=== PATIENT | female | born 1970 | race African-American/Black ===

== ENCOUNTER 2020-06-02 19:26 | Emergency (ER) | payer OTHER ==
[2020-06-02 21:15] LABS: ABSOLUTE NEUTROPHILS 7.9 thou/uL (1.4-8.2); BASOPHILS 0.7 % (0.0-2.0); EOSINOPHILS 3.2 % (0.0-3.0); HEMATOCRIT 38.1 % (37.0-47.0); HEMOGLOBIN 12.1 gm/dL (12.0-15.0); LYMPHOCYTES 18.8 % (24.0-44.0); MCH 22.3 pg (26.0-34.0); MCHC 31.8 g/dL (28.0-37.0); MCV 70.2 fL (80.0-100.0); MONOCYTES 8.6 % (1.0-8.0); PLATELET COUNT 243 thou/uL (150-400); POLYS 68.7 % (36.0-66.0); RBC 5.43 mil/uL (4.20-5.00); RDW 15.3 % (10.5-14.5); WBC 11.5 thou/uL (4.0-11.0)
[2020-06-02 21:20] LABS: CALCIUM 9.1 mg/dL (8.5-10.1); MAGNESIUM 2.2 mg/dL (1.8-2.4); POTASSIUM 3.4 mmol/L (3.5-5.1)
== END 2020-06-02 22:28 | disposition home or self-care (01) ==
LOC: ER 19:26
PROVIDERS: Emergency Medicine
DX: R19.7 Diarrhea, unspecified (principal); M79.672 Pain in left foot; R53.81 Other malaise; R20.2 Paresthesia of skin; R05 Cough; R06.02 Shortness of breath; M19.90 Unspecified osteoarthritis, unspecified site; Z88.8 Allergy status to other drugs, medicaments and biological substances; Z88.1 Allergy status to other antibiotic agents; Z88.2 Allergy status to sulfonamides

== ENCOUNTER 2021-02-03 23:30 | Emergency (ER) | payer OTHER ==
[~2021-02-03] VITALS: Ht 172.7 cm; Wt 114.3 kg
[2021-02-04 00:24] LABS: HEMATOCRIT 31.7 % (37.0-47.0); HEMOGLOBIN 10.2 gm/dL (12.0-15.0); MCH 22.3 pg (26.0-34.0); MCHC 32.1 g/dL (28.0-37.0); MCV 69.4 fL (80.0-100.0); RBC 4.57 mil/uL (4.20-5.00); RDW 14.8 % (10.5-14.5); WBC 10.5 thou/uL (4.0-11.0)
[2021-02-04 00:42] LABS: ALBUMIN 2.7 g/dL (3.4-5.0); CALCIUM 8.7 mg/dL (8.5-10.1); CREATININE 0.9 mg/dL (0.6-1.0); TOTAL BILIRUBIN 0.3 mg/dL (0.2-1.0); TOTAL PROTEIN 7.9 g/dL (6.4-8.2)
[2021-02-04 00:48] LABS: POTASSIUM 2.8 mmol/L (3.5-5.1)
[2021-02-04] MEDS ORDERED: GUAIFEN-CODEINE10 ML PO (01:15)
[2021-02-04] MEDS ORDERED: POTASSIUM20 PO (01:16)
[2021-02-04] MEDS ORDERED: LEVAQUIN 500 M500 MG PO ×2 (01:17→01:28)
[2021-02-04] MEDS ORDERED: GUAIFENESIN-CO473 ML PO (01:24)
[2021-02-04] MEDS ORDERED: POTASSIUM CHLO20 ME2 PO (01:24)
[2021-02-04 01:42] VITALS: BP 160/90
[2021-02-05] MEDS ORDERED: OXYBUTYNIN 5 MG5 M2 PO (21:01)
[2021-02-05] MEDS ORDERED: BUTALBIT-ACETA1 EACH PO (21:02)
[2021-02-05] MEDS ORDERED: NEURONTIN300 MG PO (21:04)
[2021-02-05] MEDS ORDERED: PROAIR HFA8.5 GM INH (21:05)
== END 2021-02-04 01:40 | disposition home or self-care (01) ==
LOC: ER 23:30
PROVIDERS: Emergency Medicine
DX: J18.9 Pneumonia, unspecified organism (principal); E87.6 Hypokalemia; Z88.2 Allergy status to sulfonamides; Z88.1 Allergy status to other antibiotic agents; Z88.8 Allergy status to other drugs, medicaments and biological substances

== ENCOUNTER 2021-02-05 18:17 | Inpatient (IN) | payer OTHER ==
[~2021-02-05] VITALS: Ht 172.7 cm; Wt 109.1 kg
[~2021-02-05 18:17] MED LIST: GUAIFEN-CODEINE10 ML PO; GUAIFENESIN-CO473 ML PO; LEVAQUIN 500 M500 MG PO; POTASSIUM CHLO20 ME2 PO; POTASSIUM20 PO
[2021-02-05 18:20] VITALS: BP 136/89
[2021-02-05 19:01] LABS: ABSOLUTE NEUTROPHILS 5.7 thou/uL (1.4-8.2); BASOPHILS 1.2 % (0.0-2.0); EOSINOPHILS 7.3 % (0.0-3.0); HEMATOCRIT 30.7 % (37.0-47.0); HEMOGLOBIN 9.8 gm/dL (12.0-15.0); MCHC 31.8 g/dL (28.0-37.0); MCV 69.1 fL (80.0-100.0); MONOCYTES 12.1 % (1.0-8.0); PLATELET COUNT 146 thou/uL (150-400); POLYS 63.4 % (36.0-66.0); RBC 4.45 mil/uL (4.20-5.00); RDW 14.9 % (10.5-14.5)
[2021-02-05 19:09] LABS: CALCIUM 8.5 mg/dL (8.5-10.1); CREATININE 0.8 mg/dL (0.6-1.0); POTASSIUM 3.9 mmol/L (3.5-5.1)
[2021-02-05 19:15] LABS: ALBUMIN 2.5 g/dL (3.4-5.0); TOTAL BILIRUBIN 0.3 mg/dL (0.2-1.0); TOTAL PROTEIN 7.5 g/dL (6.4-8.2)
[2021-02-05 19:58] LABS: HYPOCHROMASIA 3+; MICROCYTES 3+
[2021-02-05 20:25] VITALS: BP 136/89
[2021-02-05 20:39] VITALS: BP 134/80
[2021-02-05] MEDS ORDERED: OXYBUTYNIN 5 MG5 M2 PO (21:01)
[2021-02-05] MEDS ORDERED: BUTALBIT-ACETA1 EACH PO (21:02)
[2021-02-05] MEDS ORDERED: NEURONTIN300 MG PO (21:04)
[2021-02-05] MEDS ORDERED: PROAIR HFA8.5 GM INH (21:05)
--- NOTE | 2021-02-06 04:50 | NUR ---
PT ADMITTED TO UNIT APPROX 2045, CONSENTS OBTAINED, ADMISSION PACKET PROVIDED. PT REPORTS NOT FEELING SAFE AT HOME, DENIES ABUSE, REPORTS THEFT AND PEOPLE USING HER MONEY WITHOUT HER CONSENT. NO AUTHORIZED CONTACT ADDED. CASE MANAGEMENT REFERRAL ACTIVATED. CARE COORDINATED WITH GELA MEJIA, MEDICAL RECORD FORM COMPLETED FOR [facility]. UPON ASSESSMENT, PT AOX4, NOTABLY HOARSE. PT REPORTS 7/10 NONCARDIAC CHEST PAIN, WORSENED WITH COUGHING. PT REPORTS SOB AT REST AND WITH EXERTION WHILE ON ROOM AIR. 2L O2 VIA NC APPLIED, PT REPORTS IMMEDIATE RELIEF. PT TOLERATES PO INTAKE OF FLUIDS AND HEART HEALTHY DIET WITHOUT ISSUE. PT INTERMITTENTLY REPORTING NAUSEA WITHOUT EMESIS. PT AMBULATING INDEPENDENTLY IN ROOM AND TO BATHROOM, GAIT STEADY. PT WITH INTERMITTENT INCONTINENCE. NO SKIN BREAKDOWN NOTED, BARRIER CREAM PROVIDED. PT REPORTS NUMBNESS AND TINGLING IN CHEST. CAPILLARY REFILL LESS THAN 3SEC, PERIPHERAL PULSES PALPABLE IN ALL EXTREMITIES. PT ENCOURAGED TO NOTIFY STAFF FOR ALL NEEDS, CALL LIGHT WITHIN REACH, BED LOCKED IN LOWEST POSITION, FREQUENT MONITORING WILL CONTINUE.
[2021-02-06 05:38] LABS: HEMATOCRIT 29.2 % (37.0-47.0); HEMOGLOBIN 9.3 gm/dL (12.0-15.0); MCH 22.3 pg (26.0-34.0); MCHC 31.8 g/dL (28.0-37.0); MCV 70.1 fL (80.0-100.0); RBC 4.17 mil/uL (4.20-5.00); WBC 9.3 thou/uL (4.0-11.0)
[2021-02-06 05:52] LABS: CALCIUM 8.1 mg/dL (8.5-10.1); CREATININE 0.8 mg/dL (0.6-1.0); POTASSIUM 3.4 mmol/L (3.5-5.1)
[2021-02-06 08:00] VITALS: BP 119/75
--- NOTE | 2021-02-06 12:58 | NUR ---
cm spk with pt who indicated she is staying with her cousin since decemeber. pt currently uses no dme, but stated she once used shower seat and seat riser. pt denies hx with hh, stated when I needed before "I couldn't afford it." pt beleives she would benefit from hh at d/c.
[2021-02-06 18:18] VITALS: BP 151/86
[2021-02-06 19:18] VITALS: BP 149/101
--- NOTE | 2021-02-06 19:29 | NUR ---
ASSUMED PT CARE THIS AM. PT IS ALERT AND ORIENTED X4 BUT DEMANDING AT TIMES. PT IS UP AD BRIANA. COLLECTED MRSA PCR THIS AM. PT HAD CT SCAN THIS AM WITH AND WITHOUT CONTRAST. LAST BM WAS TODAY. PT IS MARGARET TANNER. PT COMPLAINT ABOUT OXYBUTYNIN AND INFORMED DR ABOUT PT CONCERNED. DR INFORMED TO CONTINUE MEDICATION AND GIVEN PER DR AND PATIENT REQUEST. PT IS ON THE BED, BED ON THE LOWEST POSITION, SIDE RAILS UP, CALL LIGHT WITHIN REACH. WILL CONTINUE TO MONITOR PT. FOLLOW POC.
[2021-02-06 23:05] VITALS: BP 150/89
--- NOTE | 2021-02-07 03:27 | NUR ---
PT IS A/O X4 AND IS UP AD BRIANA IN ROOM. ROOM AIR WITH O2 ON SB. SCHEDULED BRTX AND PRN BRTX GIVEN DIRECTED. C/O COUGH. NOTIFIED BRICK STACKER. ORDERS GIVEN FOR COUGH MEDICINE. PT STATED LATER IN NOC IT DIDN'T HELP AND WANTED SOMETHING ELSE. NOTIFIED BRICK STACKER WHO GAVE ORDER FOR ANOTHER KIND OF COUGH MEDICATION. WHEN GIVING IT TO THE PT SHE STATED THAT KIND DOESN'T WORK EITHER. APPEARS UNHAPPY AND IRRITIBLE WITH STAFF. WAS NOT HAPPY WITH RT STAFF GIVING PRN BRTX STATING SHE LET THE BRTX STAY ON FOR TOO LONG. NURSE HAS BEEN DILIGENT IN OFFERING ACCOMODATING RECCOMMENDATIONS TO HELP WITH DISCOMFORT. PT STATED SHE HASN'T HAD A BATH AND FELT JALIL. NURSE OFFERED TO HELP WITH SHOWER. PT DECLINED STATING THAT SHE SIMPLY DIDN'T WANT TO TAKE ONE CAUSE WE DON'T HAVE BRIEFS HERE SHE COULD WEAR AFTERWARDS. PT C/O NOT GETTING HER OXYBUTIN THIS NOC. NURSE NOTIFIED BRICK STACKER WHO CHANGED THE ORDERS FOR PT TO RECEIVE IT. PT REFUSED INSULIN ORDERED. HS BS WAS 187. PT STATED SHE DOESN'T TAKE INSULIN DOESN'T UNDERSTAND WHY IT WAS ORDERED AND THAT SHE WOULD ABSOLUTELY NOT TAKE IT DESPITE NURSE EDUCATING HER ON THE BENEFITS OF TAKING IT. AT THIS TIME PT IS LYING IN HER BED AND APPEARS TO BE SLEEPING WITH EYES CLOSED. WILL CONTINUE TO MONITOR.
[2021-02-07 04:06] VITALS: BP 151/93
[2021-02-07 09:45] VITALS: BP 157/98
[2021-02-07 14:59] VITALS: BP 157/98
--- NOTE | 2021-02-07 15:00 | NUR ---
CARE TEAM INDICATED THAT PT IS PROGRESSING SLOWLY TOWARD GOAL OF DISCHARGE. [facility] MET WITH PT AND THEY ARE ABLE TO ACCEPT PT FOR HH SERVICES [place]. THEY WILL ASLO ASSIST WITH ESTABLISHING PT WITH A PCP [place]. CM FOLLOWING REGARDIGN [place] PLANNING.
[2021-02-07 17:57] VITALS: BP 157/99
--- NOTE | 2021-02-07 18:47 | NUR ---
Patient alert and orinted x4, on room air, cough meds given per MAR, new IV placed by IV team, up ad jean claude in room, tolerating diet well, vital signs stable, and afbriele. Call light with in reach, will continue to monitor.
[2021-02-07 19:45] VITALS: BP 130/87
[2021-02-08 02:20] VITALS: BP 131/82
--- NOTE | 2021-02-08 04:46 | NUR ---
ASSUMED CARE OF PT AT SHIFT CHANGE. PT IS AOX4 AND LETS NEEDS BE KNOWN. PT IS UP AD BRIANA. ABX TREATMENT CONTINUED. PT REPORTED SOME HEADACHE AND COUGH; PRNS WERE PROVIDED. ASSESSMENT CHARTED. PT IS PROGRESSING TOWARDS DC GOALS. VSS AND NO S/S OF ACUTE DISTRESS. WILL CONTINUE TO MONITOR.
[2021-02-08 07:40] VITALS: BP 177/88
[2021-02-08 10:35] LABS: HEMATOCRIT 28.7 % (37.0-47.0); HEMOGLOBIN 9.1 gm/dL (12.0-15.0); MCH 22.2 pg (26.0-34.0); MCHC 31.6 g/dL (28.0-37.0); RBC 4.1 mil/uL (4.20-5.00)
[2021-02-08 10:46] LABS: CREATININE 0.9 mg/dL (0.6-1.0); MAGNESIUM 2.3 mg/dL (1.8-2.4); POTASSIUM 3.7 mmol/L (3.5-5.1)
--- NOTE | 2021-02-08 13:54 | NUR ---
CARE TEAM INDICATED THAT PT WILL LIKELY BE MEDICALLY STABLE TO [place] HOME TOMORROW. PT HAS BEEN ACCEPTED FOR SERVICES THROUGH [facility] [place]. CM FOLLOWING.
[2021-02-08 16:25] VITALS: BP 222/123
--- NOTE | 2021-02-08 16:46 | NUR ---
ASSUMED CARE OF PT AT 0700 THIS MORNING. PT ADMITTED FOR RIGHT SIDE PNEUMONIA AND MIGRAINE. PT STATED SHE HAS NOT SLEPT IN 8 DAYS DUE TO MIGRAINE AGGARWAL. RT HAS BEEN BY FOR BREATHING TX'S. SKIN IS INTACT WITH NO TENTING, W/D/ATR. CR<3SECX4. LUNGS WHEZING IN RIGHT UPPER BAKER, DIMINISHED IN LOWER LOBES. ABD SOFT NONTENDER WITH ACTIVE BOWEL SOUNDS X4. ASSESSMENT RESULTS ARE CHARTED AND OTHERWISE UNREMARKABLE. PT C/O MIGRAINE AT A 10/10 SCALE THROUGHOUT THE DAY. GAVE PT MEDS ON EMAR WITHOUT RELIEF. PT WAS SEEN BY DR. ZAMORA AND SHE STATED THAT TORADOL, DIPHENHYDROMINE TOGETHER THAT CAN RELIEVE HER MIGRAINE. DR. ZAMORA ORDERED
--- NOTE | 2021-02-08 18:29 | NUR ---
CASE MANAGE STATED PT CAN RETURN HOME TOMORROW WITH HOME CARE.
[2021-02-08 19:14] VITALS: BP 160/87
--- NOTE | 2021-02-09 05:46 | NUR ---
RECEIVED CARE OF THIS PATIENT AT 1900. PATIENT ALERT AND ORIENTED X4. C/O MIGRAINE HEADSACHE. [facility]UCATIONAL INSTITUTION PRESIDENT WAS CALLED SEVERAL TIMES TO GET SOMETHING THAT WOULD WORK FOR THIS PATIENT. PATIENT WANTED A CERTAIN THING BUT THE EDUCATIONAL INSTITUTION PRESIDENT WOULD NOT GIVE IT TO HER. FINALLY THE EDUCATIONAL INSTITUTION PRESIDENT CAME UP AND TALKED WITH THE PATIENT. PATIENT WAS GIVEN SOMETHING ALREADY ORDERED FOR HER, EARLIER SAID IT WOULD NOT WORK. SLEPT LITTLE THIS SHIFT.
[2021-02-09 08:00] VITALS: BP 154/94
[2021-02-09 11:52] VITALS: BP 157/98
--- NOTE | 2021-02-09 11:53 | NUR ---
Pt dcing home today with HH per [facility]. The [facility] malhotra is here and will print the orders. She has spoken to the pt and arranged for a new pcp appt with [facility] Dr Gupta for Tuesday 02/13 @10:45. No other cm interventions indicated at this time.
[2021-02-09 11:55] VITALS: BP 157/98
[2021-02-09] MEDS ORDERED: IBUPROFEN 200200 M1 PO (11:59)
[2021-02-09] MEDS ORDERED: TOPAMAX 25 MG T25 M1 PO (11:59)
[2021-02-09] MEDS ORDERED: PULMICORT0.5 MG/21 INH (11:59)
[2021-02-09] MEDS ORDERED: ACETAMINOPHEN325 M1 PO (11:59)
[2021-02-09] MEDS ORDERED: Nicotine Transdermal TRANSDERM (11:59)
[2021-02-09] MEDS ORDERED: CEFUROXIME500 MG PO (11:59)
[2021-02-09] MEDS ORDERED: PROMETHAZINE-C473 ML PO (11:59)
[2021-02-09] MEDS ORDERED: OXYBUTYNIN 5 MG5 M1 PO (11:59)
[2021-02-09] MEDS ORDERED: PREDNISONE 20 M20 M1 PO (11:59)
[2021-02-09] MEDS ORDERED: BENZONATATE100 MG PO (11:59)
[2021-02-09 12:06] VITALS: BP 157/98
[2021-02-09 12:51] VITALS: BP 157/98
== END 2021-02-09 12:43 | disposition home health service (06) | DRG 193 ==
LOC: ER 18:17 → 4S 20:20 → EROBS 20:20 → 4S 20:41
PROVIDERS: Emergency Medicine; Internal Medicine; Nurse Practitioner Family; ADMIT Hospitalist; ATTEND Hospitalist
DX: J18.9 Pneumonia, unspecified organism (principal); J96.01 Acute respiratory failure with hypoxia; J98.59 Other diseases of mediastinum, not elsewhere classified; J45.901 Unspecified asthma with (acute) exacerbation; Z20.822 Contact with and (suspected) exposure to COVID-19; M19.90 Unspecified osteoarthritis, unspecified site; M06.9 Rheumatoid arthritis, unspecified; D64.9 Anemia, unspecified; I10 Essential (primary) hypertension; G47.33 Obstructive sleep apnea (adult) (pediatric); G43.909 Migraine, unspecified, not intractable, without status migrainosus; Z66 Do not resuscitate; F17.210 Nicotine dependence, cigarettes, uncomplicated; G62.9 Polyneuropathy, unspecified; E66.01 Morbid (severe) obesity due to excess calories; Z87.81 Personal history of (healed) traumatic fracture; Z88.1 Allergy status to other antibiotic agents; Z88.2 Allergy status to sulfonamides; Z88.8 Allergy status to other drugs, medicaments and biological substances; Z82.49 Family history of ischemic heart disease and other diseases of the circulatory system; Z83.3 Family history of diabetes mellitus; Z71.6 Tobacco abuse counseling; Z68.37 Body mass index [BMI] 37.0-37.9, adult; Z91.14 Patient's other noncompliance with medication regimen
CPT/HCPCS: 10102

== ENCOUNTER → 2021-03-16 | Outpatient (CLI) | payer OTHER ==
[~2021-03-16] MED LIST changes: +ACETAMINOPHEN325 M1 PO; +BENZONATATE100 MG PO; +BUTALBIT-ACETA1 EACH PO; +CEFUROXIME500 MG PO; +IBUPROFEN 200200 M1 PO; +NEURONTIN300 MG PO; +Nicotine Transdermal TRANSDERM; +OXYBUTYNIN 5 MG5 M1 PO; +OXYBUTYNIN 5 MG5 M2 PO; +PREDNISONE 20 M20 M1 PO; +PROAIR HFA8.5 GM INH; +PROMETHAZINE-C473 ML PO; +PULMICORT0.5 MG/21 INH; +TOPAMAX 25 MG T25 M1 PO
== END ==
LOC: RAD 13:25
PROVIDERS: ATTEND Pediatrics
DX: R91.8 Other nonspecific abnormal finding of lung field (principal)

== ENCOUNTER → 2021-04-13 | Outpatient (CLI) | payer OTHER | LOC: CAT 12:30 | PROVIDERS: ATTEND Pediatrics | DX: R91.8 Other nonspecific abnormal finding of lung field (principal); E32.9 Disease of thymus, unspecified; G47.00 Insomnia, unspecified ==